=== PATIENT | female | born 1965 | race Caucasian/White ===

== ENCOUNTER → 2019-10-22 14:44 | Outpatient (CLI) | payer OTHER, SELFPAY ==
--- NOTE | ~2019-10-22 | MM_ITS ---
EXAMINATION: MM screening marty BI w waqar HISTORY: Screening TECHNIQUE: Craniocaudal and mediolateral oblique 3-D tomosynthesis images were obtained and synthetic 2-D images were generated. CAD analysis was submitted and interpreted. COMPARISON: 09/26/2013 BREAST PARENCHYMAL COMPOSITION: There are scattered areas of fibroglandular density. FINDINGS: There is no evidence of suspicious mass, calcification, or architectural distortion to sugg est malignancy in either breast. There has been no suspicious interval change. IMPRESSION: 1. No mammographic evidence of malignancy. 2. Recommend routine screening mammography in one year. BI-RADS Category 1: Negative Reviewed, dictated and finalized at location A.
== END ==
PROVIDERS: PCP Physician Assistant; Visit Provider Advanced Practice Midwife
DX: Z12.31 Encounter for screening mammogram for malignant neoplasm of breast (principal)
CPT/HCPCS: 77063; 77067

== ENCOUNTER → 2020-10-10 14:54 | Outpatient (CLI) | payer OTHER, SELFPAY ==
--- NOTE | ~2020-10-10 | CT_ITS ---
EXAMINATION: CT abdomen w con INDICATION: Left upper quadrant pain TECHNIQUE: Computed tomographic images of the abdomen were obtained after the administration of 100 c c of Omnipaque 350 intravenous contrast. The dose-length product (DLP) was 703.57 mGy-cm. Automated e xposure control and iterative reconstruction technique were employed. COMPARISON: None FINDINGS: The lung bases are clear. The heart size is normal. The liver is diffusely low in attenuati on when compared with the spleen, consistent with hepatic steatosis. The gallbladder is surgically ab sent. There appears to be a displaced cholecystectomy clip anterior to the left hepatic lobe. The diaz creas and adrenal glands are normal. There is a 9 mm cyst of the left kidney. The right kidney is unr emarkable. There are no pathologically enlarged abdominal lymph nodes. There is a moderate-sized supr aumbilical hernia containing fat. A small fat-containing umbilical hernia is also noted. There is mil d lumbar spondylosis. IMPRESSION: 1. No CT correlate for the patient's symptoms. 2. Fat-containing ventral hernias. Reviewed, dictated and finalized at location A.
[2020-10-10 15:10] LABS: Estimated Glomerular Filt Rate > 60
== END ==
PROVIDERS: PCP Family Medicine; Visit Provider Physician Assistant
DX: R10.12 Left upper quadrant pain (principal); K43.9 Ventral hernia without obstruction or gangrene; N28.1 Cyst of kidney, acquired
CPT/HCPCS: 74160; Q9967

== ENCOUNTER → 2022-02-26 16:31 | Outpatient (CLI) | payer OTHER, SELFPAY ==
--- NOTE | ~2022-02-26 | MM_ITS ---
EXAMINATION: MM screening marty BI w waqar HISTORY: Screening TECHNIQUE: Craniocaudal and mediolateral oblique 3-D tomosynthesis images were obtained and synthetic 2-D images were generated. CAD analysis was submitted and interpreted. COMPARISON: Comparison to multiple prior studies sequentially, with oldest reviewed study dated 09/26. BREAST PARENCHYMAL COMPOSITION: There are scattered areas of fibroglandular density. FINDINGS: There is a new focal asymmetry in the periareolar location of the right breast. The left br east is stable. IMPRESSION: 1. New periareolar asymmetry of the right breast. 2. Additional spot compression and mediolateral views with possible follow-up breast ultrasound recom mended. BI-RADS Category 0: Incomplete: Needs additional imaging evaluation. Reviewed, dictated and finalized at location A. 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 New periareolar asymmetry of the right breast. 2. Additional spot compression and mediolateral views with possible follow-up b reast ultrasound recommended. BI-RADS Category 0: Incomplete: Needs additional imaging evaluation.
== END ==
PROVIDERS: PCP Family Medicine; Visit Provider Physician Assistant
DX: Z12.31 Encounter for screening mammogram for malignant neoplasm of breast (principal); R92.8 Other abnormal and inconclusive findings on diagnostic imaging of breast
CPT/HCPCS: 77063; 77067

== ENCOUNTER → 2022-03-23 14:06 | Outpatient (CLI) | payer OTHER, SELFPAY ==
--- NOTE | ~2022-03-23 | MM_ITS ---
EXAMINATION: MM diagnostic marty RT w waqar HISTORY: Area of asymmetric density, right breast on screening mammogram of 02/26/2022 TECHNIQUE: Additional 3-D tomosynthesis images of the right breast were performed and synthetic 2-D i mages were generated. Rolled medial and rolled lateral craniocaudal views of right breast. CAD analys is was submitted and interpreted. COMPARISON: 02/26/2022, 10/22/2019, 09/26/2013ilateral screening mammogram examinations FINDINGS: No suspicious mass, architectural distortion or significant new or developing density of th e right breast since 09/26/2013. No malignant calcification, skin thickening or retraction. IMPRESSION: 1. No mammographic evidence of malignancy 2. Routine mammographic screening is recommended BI-RADS Category 1: Negative Reviewed, dictated and finalized at location A. CHANGER
== END ==
PROVIDERS: PCP Family Medicine; Visit Provider Family Medicine
DX: N63.41 Unspecified lump in right breast, subareolar (principal)
CPT/HCPCS: 77061; 77065; G0279

== ENCOUNTER 2023-05-19 11:27 | Outpatient (CLI) | payer OTHER, SELFPAY ==
--- NOTE | ~2023-05-19 | MM_ITS ---
EXAMINATION: MM screening marty BI w waqar HISTORY: Screening mammogram TECHNIQUE: Craniocaudal and mediolateral oblique 3-D tomosynthesis images were obtained and synthetic 2-D images were generated. CAD analysis was submitted and interpreted. COMPARISON: 03/23/2022 diagnostic right mammogram 02/26/2022, bilateral screening mammogram BREAST PARENCHYMAL COMPOSITION: The breasts are almost entirely fatty. FINDINGS: There is no evidence of suspicious mass, calcification, or architectural distortion to sugg est malignancy in either breast. There has been no suspicious interval change. IMPRESSION: 1. No mammographic evidence of malignancy. 2. Recommend routine screening mammography in one year. BI-RADS Category 1: Negative Reviewed, dictated and finalized at location A. 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
== END 2023-05-19 11:28 ==
LOC: MICIMG 11:27
PROVIDERS: PCP Physician Assistant; Visit Provider Physician Assistant
DX: Z12.31 Encounter for screening mammogram for malignant neoplasm of breast (principal)
CPT/HCPCS: 77063; 77067

== ENCOUNTER 2024-05-01 11:51 | Outpatient (CLI) | payer OTHER, SELFPAY ==
--- OUTSIDE RECORDS SUMMARY | 2024-05-01 11:54 | XMS_ITS | Data Portability ---
Author Organization [facility] Address [address] [place] [address] Care Team Providers Care Housekeeping And Laundry Team Leader Name Role Phone JOZEF FRANKLIN Primary Care Provider [phone] Assessment Encounter Date Assessment Date Assessment LastModified by Organization Details LastModified Time 09/07/2022 09/07/2022 Annual gynecological exam performed. Patient will come back in a year unless there are new symptoms. Not available 09/07/2022 15:28:54 Plan of Treatment Reminders Order Date Submit Date Provider Last Modified By Organization Details Last Modified Time Details Appointments None record ed. Lab None record ed. Referral None record ed. Procedures None record ed. Surgeries None record ed. Imaging None record ed. Medication Orders None record ed. Patient TargetsNo targets recorded. Patient InstructionsNo instructions recorded. Reason for Referral None Reported. Results Created Date Observation Date Name Description Value Unit Range Abnormal Flag Note LastModifiedBy Organization Detail LastModifiedTime 10/08/19 20 10/10/2019 pap, LB Pap test thin prep Negati ve for Intrae pithel ial Lesion or Malign alisha normal ACCES DAREN #: [id number] Sourc e: Vagin al LMP: 010 Date Taken : 10/07 Speci men Type: ThinP rep Vial Date Repor cynthia: 2019 Clini nolan Data: Hyst: Total Cytot ech: KIANA Borges( CP) Date Repor cynthia: 2019 Speci men Adequ acy: Satis facto ry for evalu ation Gener al Categ oriza tion: NEGAT CHARO FOR INTRA EPITH ELIAL LESIO N OR MALIG BIBIANA This speci men has been arnaldo zed by the ThinP rep Imagi ng Nestor shelton, an inter activ e compu ter nestor shelton which mallory ts the lab in the perez ivey of ThinP rep Pap Test slide maximino pierce imagi ng, the slide was revie wed by a Cytot echno logis t and/o r Patho logis t. D N A A S S A Y S R E P O R T TEST NAME RESUL TS ----- ---- ----- -- HPV High Risk Perez schneider (TMA) ThinP rep Vial The human papil lomav irus (HPV) High Risk Perez schneider is an FDA-a pprov ed in-vi tro ampli fied nucle ic acid test for the quali tativ e detec tion of E6/E7 viral mRNA. Resul ts shoul d be corre lated with patie nt prese ntati on, histo ry, cervi nolan cytol ogy and other clini nolan and labor atory findi ngs. See https ://MobilePro/s ites/ defau lt/fi les/2 018-0 3/AW- 50417 _002_ 01.pd f for racheal schneider. Test perfo rmed by [facility]oc i[facility] Patho logis [employer], [employer], d/b/a Margaret krissy, [address], [place] [address] , Donavan Amador ra, DO, Labor atory [facility]. HPV High Risk *HPV NOT DETEC CYNTHIA (TYPE S 16, 18, 31, 33, 35, 39, 45, 51, 52, 56, 58, 59, 66, 68) *HPV: The human papil lomav irus (HPV) High Risk Preez schneider is an FDA-a pprov ed in-vi tro ampli fied nucle ic acid test for the quali tativ e detec tion of E6/E7 viral mRNA. Resul ts shoul d be corre lated with patie nt prese ntati on, histo ry, cervi nolan cytol ogy and other clini nolan and labor atory findi ngs. See https ://ww Bio[employer]ica/s ites/ channing /fi les/2 018-0 3/AW- 85428 _002_ 01.pd f for racheal er brunor marleni schneider. Test perfo rmed by [facility], d/b/a [facility], [address], [place] [address] , Donavan Amador ra, DO, [facility] Cover [facility]. End of Repor t Techn ical servi mikey provi ded by [facility] [employer], d/b/a [facility], [address] [place] [address] Mickey Clarke MD, [facility]. Case revie wed and diagn osis rende red at [facility], d/b/a PathG [employer], [address] [place] [address] Mickey Clarke MD, [facility]. CONFI DENTI AL Not Available [facility] ([facility]) [address], [place], [address], 10/10/2019 17:06:15 10/08/19 20 10/10/2019 HPV DNA, high- risk HPV high risk NOT DETECT ED normal Not Available [facility]) [facility] [address], [place], [address], 10/10/2019 17:06:16 10/22/19 20 10/22/2019 MAMMO , scree loni, bilat eral No observ ation record ed. [facility]ula [facility] [address], [place], [address], 02/20/2020 17:37:00 Result Notes None recorded. Problems Name Problem SNOMED Code Status Onset Date Resolution Date Notes Provider Name and Address Organization Details Recorded Time Urinary tract infectiou s disease 89196181 Active 2018 Urinary tract infection, site not specified; Practice ID: 0001 Not Available [facility] 0 18:34:02 Finding of desire for urination 115412581 Active 2018 Urgency of urination; Practice ID: 0001 Not Available [facility] 0 18:34:02 Pelvic and perineal pain 250898109 Active 2015 Pelvic and perineal pain;Pract ice ID: 0001 Not Available [facility] 0 18:34:02 Cyst of ovary 70258574 Active 2015 Unspecifie d ovarian cyst, right side;Pract ice ID: 0001 Not Available [facility] 0 18:34:02 Uterine leiomyoma 87681322 Active 2015 Leiomyoma of uterus, unspecifie d;Practice ID: 0001 Not Available [facility] 0 18:34:03 Vaginolab ial hernia Active 2016 Other specified noninflamm atory disorders of vagina;Pra ctice ID: 0001 Not Available [facility] 0 18:34:[address] Concept Active 2016 Encntr for general adult medical exam w/o abnormal findings;P ractice ID: 0001 Not Available [facility] 0 18:34:[address] Concept Active 2016 Encntr for e 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 merchandising 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 exam (general) (routine) w/o abn findings;P ractice ID: 0001 Not Available [facility] 0 18:34:03 Screening for malignant neoplasm of rectum Active 2016 Encounter for screening for malignant neoplasm of rectum;Pra ctice ID: 0001 Not Available [facility] 0 18:34:03 Endometri osis of uterus 65462558 Active 2016 Endometrio sis of uterus;Pra ctice ID: 0001 Not Available [facility] 0 18:34:03 Radiology result abnormal 762545448 Active 2011 Thickened Endometria l Stripe;Pra ctice ID: 0001 Not Available [facility] 0 18:34:04 Dysmenorr hea 766533993 Active 2011 Dysmenorrh ea;Practic e ID: 0001 Not Available [facility] 0 18:34:04 Routine care Active 2011 Supervisio n of other normal ; Practice ID: 0001 Not Available [facility] 0 18:34:04 Specializ ed medical examinati on Active 2011 Routine gynecologi nolan examinatio n;Practice ID: 0001 Not Available [facility] 0 18:34:04 Screening for malignant neoplasm of cervix Active 2011 Pap Smear;Prac keith ID: 0001 Not Available [facility] 0 18:34:04 Hypertrop hy of uterus Active 2013 Hypertroph y of uterus;Pra ctice ID: 0001 Not Available [facility] 0 18:34:04 Menstruat ion finding Active 2013 Menorrhagi a Excessive Menstruati on;Practic e ID: 0001 Not Available [facility] 0 18:34:05 Pre-surge ry evaluatio n Active 2013 Pre-operat charo examinatio n, unspecifie d;Practice ID: 0001 Not Available [facility] 0 18:34:05 Chronic salpingo- oophoriti s 557782584 Active 2013 Chronic salpingiti s and oophoritis ;Practice ID: 0001 Not Available [facility] 0 18:34:05 Postopera tive follow-up visit Active 2013 Follow Up Surgery;Pr actice ID: 0001 Not Available [facility] 0 18:34:05 Female genital organ symptoms 277249391 Active 2011 Unspecifie d symptom associated with female genital organs;Rec orded Elsewhere: No Locatio n: [facility] rce: EHR Chroni c: N Practice ID: 0001 Billa ble Time: 10:00:00 AM Not Available [facility] 0 18:34:07 Candidal vulvovagi nitis 89819036 Active 2010 Candidiasi s of vulva and vagina;Pra ctice ID: 0001 Not Available [facility] 0 18:34:07 Mittelsgena landin 12706402 Active 2011 Raghu kaur;Practi ce ID: 0001 Not Available [facility] 0 18:34:08 test negative 660120678 Active 2011 Negative Test;Pract ice ID: 0001 Not Available [facility] 0 18:34:08 Cholecyst itis 75866267 Active 2011 Cholecysti tis, unspecifie d;Practice ID: 0001 Not Available [facility] 0 18:34:08 Backache 875703933 Active 2011 Backache, unspecifie d;Practice ID: 0001 Not Available [facility] 0 18:34:08 Morbid obesity 206743743 Active 2013 Obesity, Morbid;Rec orded Elsewhere: No Locatio n: [facility] rce: EHR Chroni c: N Practice ID: 0001 Billa ble Time: 08:30:00 AM Not Available [facility] 0 18:34:09 Acute vaginitis 01084969 Active 2018 Acute vaginitis; Recorded Elsewhere: No Locatio n: [facility] rce: EHR Chroni c: N Practice ID: 0001 Billa ble Time: 08:45:00 AM Not Available [facility] 0 18:34:10 Finding of trunk structure 952950891 Active 2013 Abdomen mass;Recor ded Elsewhere: No Locatio n: [facility] rce: EHR Chroni c: N Practice ID: 0001 Billa ble Time: 09:00:00 AM Not Available [facility] 0 18:34:11 Dysuria 52131155 Active 2018 Dysuria;Re corded Elsewhere: No Locatio n: [facility] rce: EHR Chroni c: N Practice ID: 0001 Billa ble Time: 08:45:00 AM Not Available [facility] 0 18:34:11 Evaluatio n finding Active 2018 Hematuria, unspecifie d;Recorded Elsewhere: No Locatio n: [facility] rce: EHR Chroni c: N Practice ID: 0001 Billa ble Time: 08:45:00 AM Not Available [facility] 0 18:34:11 Finding of body mass index 494309801 Active 2015 Body mass index (BMI) 40.0-44.9, adult;Tyson rded Elsewhere: No Locatio n: [facility] rce: EHR Chroni c: N Practice ID: 0001 Beth vasquez Time: 04:30:00 PM Not Available [facility] 0 18:34:13 Problem Notes None recorded. Procedures Surgical History Date Name Laterality Status Provider Name and Address Organization Details Recorded Time 10/22/19 20 Date of Last Mammogram completed [facility] 09/07/2022 15:30:56 10/08/19 20 Date of Last Pap Smear completed [facility] 09/07/2022 15:30:14 03/14/19 [address] [facility] 10/05/2019 10:55:57 03/14/19 [address] [facility] 10/05/2019 10:55:11 03/14/19 02 Tubal Ligation completed [facility] 10/05/2019 10:54:17 03/14/[address] [facility] 10/05/2019 10:53:24 Total Hysterectomy completed [facility] 10/05/2019 10:53:55 Imaging Results Imaging Date Name Status LastModified by Organiz ation Details LastModified Time 10/22/2019 MAMMO, screening, bilateral completed [facility] [address], [place], [address], 02/20/2020 17:37:00 Procedure Notes None recorded. Medical Equipment None Reported. Allergies No known drug allergies Medications Name Sig Start Date Stop Date Status Note LastModified by Organization Details LastModified Time fluconazo le 150 mg tablet TAKE 1 TABLET BY MOUTH ONCE. MAY REPEAT X 1 IN WEEK IF NEEDED A SINGLE DOSE 09/07 completed Not Available Not Available Not Available Zithromax Z-Refugio 250 mg tablet take 2 tablet (500MG) by oral route every day for 1 day then 1 tablet (250 mg) by oral route once daily for 4 days 04/22 completed Prescrib ed Elsewher e: No [facility] DateTime : 04/14/19 12 08:00:14 AM Not Available Not Available Not Available ciproflox acin 500 mg tablet take 1 tablet by oral route every 12 hours 09/07 completed Prescrib ed Elsewher e: No Locat ion: [facility] odify By: syd mcrae DateTime : 06/13/19 19 10:00:00 AM Not Available Not Available Not Available amoxicill in 875 mg tablet TAKE 1 TABLET NOW, THEN 1 TABLET TWICE A DAY UNTIL GONE 09/07 completed Not Available Not Available Not Available estradiol 1 mg tablet TAKE 1 TABLET BY MOUTH EVERY DAY active Not Available Not Available No t Available valsartan 320 mg tablet TAKE 1 TABLET BY MOUTH EVERY DAY active Not Available Not Available No t Available losartan 25 mg tablet take 1 tablet by oral route every day 09/07 completed Prescrib ed Elsewher e: Yes Loca tion: [facility] odify By: amkcarrie fritz DateTime : 09/19/19 14 08:30:00 AM Not Available Not Available Not Available cefuroxim e axetil 500 mg tablet TAKE 1 TABLET BY MOUTH EVERY 12 HOURS FOR 10 DAYS 09/07 completed Not Available Not Available Not Available Vitamin D2 1,250 mcg (50,000 unit) capsule take 1 capsule by oral route every week 09/07 completed Prescrib ed Elsewher e: No [facility] DateTime : 10/10/19 14 03:06:21 PM Not Available Not Available Not Available amoxicill in 875 mg-potass ium clavulana te 125 mg tablet TAKE 1 TABLET BY MOUTH TWICE A DAY FOR 10 DAYS 09/07 completed Not Available Not Available Not Available Vitamins and Minerals tablet active Prescrib ed Elsewher e: Yes Loca tion: [facility] odify By: enedelia fritz DateTime : 04/06/19 12 10:00:00 AM Not Available Not Available Not Available iron ER 325 mg (65 mg iron) capsule,e xtended release 09/07 completed Prescrib ed Elsewher e: Yes Loca tion: [facility] odify By: enedelia fritz DateTime : 04/06/19 12 10:00:00 AM Not Available Not Available Not Available valsartan 09/07 completed Not Available Not Available Not Available Vitamin D active Not Available Not Day ilable Not Available Vitamin And Mineral 09/07 completed Not Available Not Available Not Available Minastrin 24 Fe 1 mg-20 mcg (24)/75 mg (4) chewable tablet chew 1 tablet by oral route every day 05/22 completed Prescrib ed Elsewher e: No [facility] By: william fritz DateTime : 04/17/19 15 03:30:00 PM Not Available Not Available Not Available Vitals Date Recorded Body height Body mass index (BMI) Body weight Systolic blood pressure Diastolic blood pressure Provider Name and Address Organization Details Last Updated DateTime 10/08/2019 157.48 cm 47.2 kg/m2 114284.8 3 g 126 mm[Hg] 83 mm[Hg] Seema Hanson [facility] 0 16:20:55 Date Recorded Body height Body mass index (BMI) Body weight Provider Name and Address Organization Details Last Updated DateTime 09/07/2022 157.48 cm 45.4 kg/m2 143046.91 g Lesia Smallwood [facility] 09/07/2022 15:29:17 Date Recorded Systolic blood pressure Diastolic blood pressure Provider Name and Address Organization Details Last Updated DateTime 09/07/2022 122 mm[Hg] 80 mm[Hg] Sue Mcbride, [facility] [address], [place], [address], [facility] 09/07/2022 15:45:02 Date Recorded Body height Body mass index (BMI) Body weight Systolic blood pressure Diastolic blood pressure Provider Name and Address Organization Details Last Updated DateTime 10/19/2022 157.48 cm 45 kg/m2 742124.7 2 g 139 mm[Hg] 79 mm[Hg] Lesia Cl [facility] 16:08:32 Social History Question Answer Notes LastModified by Organizat ion Details LastModified Time Tobacco Smoking Status Never Smoker Seema Hanson ty, [facility] 10/08/2019 16:28:02 What Is Your Level Of Alcohol Consumption? Occasional Information not available 10/08/2019 In The 14 Days Before Symptom Onset, Have You Had Close Contact With A Laboratory-confirm ed COVID-19 While That Case Was Ill? No Information n ot available 09/07/2022 In The 14 Days Before Symptom Onset, Have You Had Close Contact With A Person Who Is Under Investigation For COVID-19 While That Person Was Ill? No Information not available 09/07/2022 Have You Been To An Area Known To Be High Risk For COVID-19? No Information not available 09/07/2022 Sex: Unknown Functional Status Question Answer Note LastModified by Organizat ion Details LastModified Time What is your exercise level? Occasional Information not available 10/08/2019 Mental Status None recorded. Family History Nothing Reported. Medical History Condition Response Other Gynecological History Statement/Question Response Date of Last Mammogram 10/22/2019 Date of Last Colonoscopy Menses Monthly N HPV Vaccine N Date of Last Pap Smear 10/08/2019 Current Control Method Hysterectom y LMP Unknown Obstetrics History GPAL:G 2 P 0 0 0 2 Type Value Living 2 Total 2 Past Encounters Encounter ID Performer Location Encounter Start Date Encounter Closed Date Diagnosis/Indication Diagnosis SNOMED-CT Code Diagnosis ICD10 Code Diagnosis Note [id number] Rylee [facility]gicaashley [facility] [address] [address] 10/08/2019 16:13:15 10/09/2019 14:29:02 Gynecologic examination 14927130 Z01.419 Take Calcium with Vitamin D 12-1500mg daily. Do monthly self breast exams. It is advised to get annual flu shot in the fall and she could obtain at [facility] or [facility] clinic. If you haven't received the Tdap vaccine in the last 10 years you should obtain one as well. Have mammogram yearly, bone density every 2-3 years and colonoscop y every 5-10 years depending on findings and history. Engage in daily exercise of low impact aerobic exercise 45-60 minutes 4-5 times weekly. Avoid tobacco and illicit drugs as well as using moderation with alcohol intake less than 1-2 8 oz beverages daily. This lifestyle behavior pattern will lead to less health conditions and longer life span. If BMI greater than 25 weight watchers or dietary consult advised. Questions have been answered. Patient appears to understand instructio ns, but if you have any further questions call or respond to this email. [id number] Sue Mcbride , [facility] [address] [address] 09/07/2022 15:09:18 09/07/2022 15:57:23 Gynecologic examination 61325121 Z01.419 Take Calcium with Vitamin D 12-1500mg daily. Do monthly self breast exams. It is advised to get annual flu shot in the fall and she could obtain at [facility]. If you haven't received the Tdap vaccine in the last 10 years you should obtain one as well. Have mammogram yearly, bone density every 2-3 years and colonoscop y every 5-10 years depending on findings and history. Engage in daily exercise of low impact aerobic exercise 45-60 minutes 4-5 times weekly. Avoid tobacco and illicit drugs as well as using moderation with alcohol intake less than 1-2 8 oz beverages daily. This lifestyle behavior pattern will lead to less health conditions and longer life span. If BMI greater than 25 weight watchers or dietary consult advised. Questions have been answered. Patient appears to understand instructio ns, but if you have any further questions call or respond to this email Pap/hpv d/c unless otherwise indicated. USPSTF recommends against screening for cervical cancer in women older than 65yo, those who've had a hysterecto my for non-cancer indication s, & who have had adequate prior screening & are not otherwise at high risk for cervical cancer. STD Screen declined Genetic Screen discussed Colon Screen UTD PCP Dexa Screen PCP Routine Labs PCPmammo due 2023 PCP Menopausal symptom 54312 002 N95.1 We discussed trial of estradiol 1mg for hot flashes/ni ght sweats.Stew l consider this option & call if would like to pursue.Wou ld need a med check 4wks.Hyste rectomy for noncancero us issues We discussed Menopausal Hormone therapy (MHT) for women with intact uterus with the goals of reliving vaso-motor sx's using estrogen/p rogestin therapy (EPT) using lowest doses for shortest duration in women 40-59yo. Contraindi cations include: Hx of DVT or thrombolic events, High cholestero l, Hx of breast cancer, known CHD, active liver disease, unexplaine d vag bleeding, high risk endometria l cancer, TIA. Side effects can include but are not limited to: Irregular vag bleeding,, breast tenderness , nausea, weight changes, libido changes, nausea. Adverse Rxn: Elevated BP migraine w/ visual changes, breast cancer dx, [place]/stroke, DVT/PE, Endometria l cancer. Please contact office with any new or worsening side effects or adverse reactions. Or if a medical emergency please go to nearest ED/[facility] care for further evaluation . [id number] Sue Mcbride , [facility] [address] [address] 10/19/2022 15:59:06 10/20/2022 16:13:25 Menopausal symptom 56781422 N95.1 Here today for med check of HRT.Only took x 1wksRaised her BPCaused nausea and stomach upset.Stop ped & all sx's resolved.D ecided to not pursue HRT at this time; including the non-hormon al options discussed at this time.Will reach out if changes her mind. Time spent in visit is a total of 15 mins with at least 50% of visit consisting of counseling and review of plan of care. Health Concerns Section Related Observation LastModified by Organization Detai ls LastModified Time None Recorded Concern Status LastModified by Organization Details LastModified Time None Recorded Advance Directives Directive None Recorded Payers Encounter Date Sequence Insurance Name Policy Number Policy White Covered Member ID White Member ID Guarantor Name 10/08/2019 1 [facility] [id number] Gloria Eirc [id number] Gloria Eric 09/07/2022 1 [facility] [id number] Gloria Eric [id number] Gloria Eric 10/19/2022 1 [facility] [id number] Debrajose Earnest Eric [id number] Gloria Eric Notes Date Note Type Note Provider Name and Address Organization Details Recorded Time 10/08/2019 text/html Annual GYNReport ed bypatient.History: Denies any history of abnormal pap. Hyst in 2017. Menstrual cycle:Normal menses Urinary symptoms:No hematuria; No incontinence Vulva:No genital lesion Vagina:Normal vaginal discharge Breast:No breast pain; No breast lump; No nipple discharge Sexual complaints:No sexual complaints; No pain during intercourse; Normal libido Menopausal Symptoms:No menopausal symptoms; Normal vaginal lubrication Psychological symptoms:No depression; No anxiety; No PMDD Rylee crawford, [facility] 10/08/2019 18:49:59 09/07/2022 text/html Annual Explosive Operator Fuse Post-MenopausalRep orted bypatient.Menopaus al Symptoms:no menopausal symptoms; normal vaginal lubrication Vaginal Bleeding:history of menopause having occurred; no history of post menopausal bleeding Urinary Symptoms:no hematuria; no incontinence; no nocturia; no urinary frequency Vulva:no genital lesion; no vulvar atrophy Vagina:normal vaginal discharge; no vaginal atrophy Breast:no breast lump; no nipple discharge; no breast pain Sexual Complaints:no sexual complaints Psychological Symptoms:no depression; no anxiety Preventive Measures:encourage regular mammograms starting age 40; encourage self breast examination; encourage regular exercise; encourage no tobacco use; mammogram performed within the past year; history of recent colonoscopy Sue Mcbride CLEMENTE [address], [place], [address], [facility] 09/07/2022 15:56:48 10/19/2022 text/html Here today for medication check of HRT. JEANETTE Wilson [address], [place], [id number], [facility] 10/19/2022 18:41:03 OBGyn Episode Ob Episode Information Episode Created Date Number of Fetuses Patient Bloodtype Patient rh Status Prepregnancy Weight lbs Domestic Partner Domestic Partner Phone Father Name Duck Bill Operator Status 10/08/19 20 1 CLOSED Fetus Data First Name Last Name Admitted to NICU Weight (g) Sex Living Outcome Pediatric Complications Fetus ID Race Codes Race Delivery Type [id number] Primary Jamaal Calculation Initial Jamaal Date Initial Exam Date Initial Exam Provider Initial Ultrasound Date Last Menstrual Period Date Ultra Sound Weeks Gestation 0 Eighteen To Twenty Week Jamaal Update Ultra Sound Date Fundal Height At Umbil Quickening Date Ultra Sound Latest Weeks Gestation Final Jamaal Confirmed By Final Jamaal Confirmed Date Final Jamaal Date Ultra Sound Latest Days Gestation 0 0 Menstrual History Last Menstrual Date Menses Monthly On Bcp Conception Prior Menses Frequency Hcg Plus Date Menarche Onset Age Delivery Information Delivery Date Delivery Type Labor Anesthesia Weeks Gestation Incision Type Labor Labor Length Hrs Delivered By Post Complications Tubal Sterilization Discharge Date Comments 4 distress Discharge Information Feeding Method Contraceptive Method Maternal HG B and HCT Levels Ob Episode Information Episode Created Date Number of Fetuses Patient Bloodtype Patient rh Status Prepregnancy Weight lbs Domestic Partner Domestic Partner Phone Father Name Duck Bill Operator Status 10/08/19 20 1 CLOSED Fetus Data First Name Last Name Admitted to NICU Weight (g) Sex Living Outcome Pediatric Complications Fetus ID Race Codes Race Delivery Type [id number] Vaginal Delivery Jamaal Calculation Initial Jamaal Date Initial Exam Date Initial Exam Provider Initial Ultrasound Date Last Menstrual Period Date Ultra Sound Weeks Gestation 0 Eighteen To Twenty Week Jamaal Update Ultra Sound Date Fundal Height At Umbil Quickening Date Ultra Sound Latest Weeks Gestation Final Jamaal Confirmed By Final Jamaal Confirmed Date Final Jamaal Date Ultra Sound Latest Days Gestation 0 0 Menstrual History Last Menstrual Date Menses Monthly On Bcp Conception Prior Menses Frequency Hcg Plus Date Menarche Onset Age Delivery Information Delivery Date Delivery Type Labor Anesthesia Weeks Gestation Incision Type Labor Labor Length Hrs Delivered By Post Complications Tubal Sterilization Discharge Date Comments 8 Discharge Information Feeding Method Contraceptive Method Maternal HG B and HCT Levels
== END 2024-05-01 11:52 | disposition home or self-care (01) ==
LOC: ANHAUDIO 11:51
PROVIDERS: PCP Family Medicine
DX: H93.8X9 Other specified disorders of ear, unspecified ear (principal); H73.92 Unspecified disorder of tympanic membrane, left ear; Z86.69 Personal history of other diseases of the nervous system and sense organs; H91.92 Unspecified hearing loss, left ear
CPT/HCPCS: 92557; 92567

== ENCOUNTER 2024-08-17 15:42 | Outpatient (CLI) | payer OTHER, SELFPAY ==
--- NOTE | ~2024-08-17 | MM_ITS ---
EXAMINATION: MM screening marty BI w waqar HISTORY: Screening TECHNIQUE: Craniocaudal and mediolateral oblique 3-D tomosynthesis images were obtained and synthetic 2-D images were generated. CAD analysis was submitted and interpreted. COMPARISON: Comparison to multiple prior studies sequentially, with oldest reviewed study dated 10/21. BREAST PARENCHYMAL COMPOSITION: Not Dense: The breasts are almost entirely fatty. FINDINGS: There is no evidence of suspicious mass, calcification, or architectural distortion to sugg est malignancy in either breast. There has been no suspicious interval change. IMPRESSION: 1. No mammographic evidence of malignancy. 2. Recommend routine screening mammography in one year. BI-RADS Category 1: Negative Reviewed, dictated and finalized at location B.
== END 2024-08-17 15:43 | disposition home or self-care (01) ==
LOC: MICIMG 15:43
PROVIDERS: PCP Family Medicine; Visit Provider Family Medicine
DX: Z12.31 Encounter for screening mammogram for malignant neoplasm of breast (principal)
CPT/HCPCS: 77063; 77067

== ENCOUNTER 2024-10-26 12:02 | Outpatient (CLI) | payer OTHER, SELFPAY ==
--- NOTE | ~2024-10-26 | XR_ITS ---
XR knee LT 3V 10/26/2024 12:24 Indication: Left knee pain Procedure: 3 views left knee Comparison: No prior studies for comparison. Findings: Mild-moderate tricompartment osteoarthritis. No fracture, subluxation or dislocation. No diego int effusion. No foreign bodies. 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 Reviewed, dictated and finalized at location A. 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
== END 2024-10-26 12:03 | disposition home or self-care (01) ==
PROVIDERS: PCP Family Medicine
DX: M17.12 Unilateral primary osteoarthritis, left knee (principal)
CPT/HCPCS: 73562